=== PATIENT | female | born 1965 | race Caucasian/White ===

== ENCOUNTER 2018-08-16 06:00 | Day surgery (SDC) | payer OTHER, BC ==
[~2018-08-16 06:00] MED LIST: Lactated Ringers 1,000 ML IV SCH; Lidocaine 1%/Sod Bicarbonate in NS 8.4% 1 ML Syringe IDERM PRN; Sodium Chloride 0.9% 10 ML Syringe FLUSH PRN
[2018-08-16] MEDS ORDERED: Bupivacaine 0.25% 30 ML SDV ONE (07:01)
[2018-08-16] MEDS ORDERED: Lidocaine 1% 30 ML SDV ONE (07:01)
[2018-08-16] MEDS ORDERED: ceFAZolin 1 GM Vial ONE (07:09)
--- NOTE | 2018-08-20 07:43 | PCM.OPNOTE ---
- General Post-Op/Procedure Note Date of Surgery/Procedure: 08/16/18 Operative Procedure(s): right thumb and ring finger a1 jamil release Pre Op Diagnosis: right thumb and ring finger stenosing tenosynovitis Post-Op Diagnosis: Same Anesthesia Technique: Local Primary Surgeon: Donnell Maria Spaghetti Machine Operator: Rimma Mcneil in mLs: 5 Complications: None Condition: Good
--- NOTE | 2018-08-20 08:21 | OR ---
DATE OF OPERATION: 08/16/2018 SURGEON: Donnell Maria MD OPERATION PERFORMED: Right thumb and ring finger A1 jamil releases. PREOPERATIVE DIAGNOSIS: Right thumb and ring finger stenosing tenosynovitis. POSTOPERATIVE DIAGNOSIS: Right thumb and ring finger stenosing tenosynovitis. ANESTHESIA: Local only. ANESTHESIOLOGIST: None. OFFSET PRESSMAN: Rimma Mcneil PA-C. ESTIMATED BLOOD LOSS: Less than 5 mL. COMPLICATIONS: None. CONDITION: Stable. DESCRIPTION OF PROCEDURE: The patient was identified in the preoperative holding area. Proper site was marked and identified by the surgeon. The patient was taken back to the operating theater where the right upper extremity was then sterilely prepped and draped in usual sterile fashion. OR time-out was performed. The patient did not receive antibiotics and is not indicative for soft tissue hand procedure. At this time, 1% lidocaine without epinephrine and 0.25% Marcaine without epinephrine were used to anesthetize over the A1 jamil region of the thumb and ring finger. Once this had set up, incision was made over the thumb A1 jamil region. Blunt dissection was taken down to the thumb. [place] blade was then used to resect the A1 jamil both proximally and distally to make sure we are stopping short of the A2 jamil. At this time, the tendon was found to have no adhesions. Attention was turned to the ring finger. Again, transverse incision was made. Neurovascular bundles were retracted with Ragnell retractors. Again, the [place] blade was then used to resect the A1 jamil. It was found to be adequately released both proximally and distally. The tendon again showed no signs of adhesions. Adequate saline was then irrigated through the wounds. 4-0 nylon suture was used for closure of the skin. The patient had a sterile soft dressing applied and was sent to PACU in stable condition. MMODAL /[id number]
== END 2018-08-16 08:35 | disposition home or self-care (01) ==
LOC: JD.SDS 06:00
PROVIDERS: ATTEND Orthopaedic Surgery
DX: M65.841 Other synovitis and tenosynovitis, right hand (principal); M65.311 Trigger thumb, right thumb; M65.341 Trigger finger, right ring finger; I10 Essential (primary) hypertension; E11.9 Type 2 diabetes mellitus without complications; E78.00 Pure hypercholesterolemia, unspecified; F32.9 Major depressive disorder, single episode, unspecified; F41.9 Anxiety disorder, unspecified; M19.90 Unspecified osteoarthritis, unspecified site; Z79.899 Other long term (current) drug therapy; Z88.2 Allergy status to sulfonamides
CPT/HCPCS: 26055; 82962; 87641; J0690; J2001; J3490; J7120

== ENCOUNTER 2020-02-18 23:06 | Emergency (ER) | payer OTHER, BC ==
--- NOTE | 2020-02-18 23:31 | EDM.PDOC ---
ED HPI GENERAL MEDICAL PROBLEM - General Chief Complaint: Headache Stated Complaint: COVID POSITIVE SOB Time Seen by Provider: 02/18/20 23:30 - History of Present Illness INITIAL COMMENTS - FREE TEXT/NARRATIVE: 54-year-old female presents to the emergency room with a headache. Patient was diagnosed with COVID about a week ago and has a cough this is not getting any worse or shortness of breath does not get any worse she has had a headache now is developed some nausea and vomiting. She said diarrhea from the onset of her illness. But the headache is what brings her in tonight is keeping her from sleeping. Denies loss of taste or smell. Patient has no other complaints at this time Headache Pain Score (Numeric/FACES): 8 - Related Data Allergies Allergy/AdvReac Type Severity Reaction Status Date / Time Sulfa (Sulfonamide Allergy Hives Verified 02/18/20 23:30 Antibiotics) Home Meds: Home Meds Enalapril Maleate 20 mg PO BID 08/15/18 [History] FLUoxetine HCl [Prozac] 20 mg PO BID 08/15/18 [History] metFORMIN [Glucophage] 1,000 mg PO BID 08/15/18 [History] Past Medical History HEENT History: Reports: Sinusitis, Other (See Below) Other HEENT History: pharyngitis Cardiovascular History: Reports: High Cholesterol, Hypertension Respiratory History: Reports: Bronchitis, Recurrent Genitourinary History: Reports: Other (See Below) Other Genitourinary History: frequnecy, UTI, kidney stones, renal stent, lithotripsy [facility] History: Reports: None Musculoskeletal History: Reports: Arthritis, Gout, Other (See Below) Other Musculoskeletal History: thumb pain Neurological History: Reports: None Psychiatric History: Reports: Anxiety, Depression, Other (See Below) Other Psychiatric History: fatigue Endocrine/Metabolic History: Reports: Diabetes, Type II Hematologic History: Reports: None Immunologic History: Reports: None Oncologic (Cancer) History: Reports: None Dermatologic History: Reports: None - Past Surgical History Head Surgeries/Procedures: Reports: None HEENT Surgical History: Reports: Tonsillectomy Cardiovascular Surgical History: Reports: None Respiratory Surgical History: Reports: None GI Surgical History: Reports: Appendectomy Female Surgical History: Reports: Section Male Surgical History: Reports: None Endocrine Surgical History: Reports: None Neurological Surgical History: Reports: None Oncologic Surgical History: Reports: None Dermatological Surgical History: Reports: None Social & Family History - Caffeine Use Caffeine Use: Reports: Soda ED ROS GENERAL - Review of Systems Review Of Systems: See Below Constitutional: Reports: No Symptoms HEENT: Reports: No Symptoms Respiratory: Reports: Cough. Denies: Shortness of Breath Cardiovascular: Reports: No Symptoms, Chest Pain (This is vague and seems to be pretty mild associated with the ribs at the lower portion of her chest aggravated by coughing) Endocrine: Reports: No Symptoms GI/Abdominal: Reports: Abdominal Pain (Minimal discomfort most of her discomfort is along her lower ribs worse with coughing), Nausea, Vomiting : Reports: No Symptoms Musculoskeletal: Reports: No Symptoms Skin: Reports: No Symptoms Neurological: Reports: Headache. Denies: Dizziness, Numbness, Seizure, Syncope ED EXAM, GENERAL - Physical Exam Exam: See Below Exam Limited By: No Limitations General Appearance: Alert, No Apparent Distress, Obese Eye Exam: Bilateral Eye: EOMI, Normal Inspection, PERRL Ears: Normal External Exam, Normal Canal, Hearing Grossly Normal, Normal TMs Nose: Normal Inspection, Normal Mucosa, No Blood Throat/Mouth: Normal Inspection, Normal Lips, Normal Teeth, Normal Gums, Normal Oropharynx, Normal Voice, No Airway Compromise Head: Atraumatic, Normocephalic Neck: Normal Inspection, Supple, Non-Tender, Full Range of Motion. No: Lymphadenopathy (L), Lymphadenopathy (R) Respiratory/Chest: No Respiratory Distress, Lungs Clear, Normal Breath Sounds Cardiovascular: Regular Rate, Rhythm, No Edema, No Murmur GI/Abdominal: Normal Bowel Sounds, Soft, Other (No specific tenderness what she has is along the lower ribs) Back Exam: Normal Inspection. No: CVA Tenderness (L), CVA Tenderness (R) Extremities: Normal Inspection, No Pedal Edema Neurological: Alert, Oriented, CN II-XII Intact, Normal Cognition, No Motor/Sensory Deficits Lymphatic: No Adenopathy Course - Vital Signs Last Recorded V/S: Last Vital Signs Temp 36.1 C 02/18/20 23:27 Pulse 116 H 02/18/20 23:27 Resp 20 02/18/20 23:27 BP 146/90 H 02/18/20 23:27 Pulse Ox 94 L 02/18/20 23:27 - Orders/Labs/Meds Meds: Medications Discontinued Medications Generic Name Dose Route Start Last Admin Trade Name Dominik PRN Reason Stop Dose Admin Diphenhydramine HCl 50 mg 02/18/20 23:56 02/19/20 00:37 Benadryl IVPUSH 02/18/20 23:57 50 mg ONETIME ONE Administration Lactated Ringer's 1,000 mls @ 999 mls/hr 02/18/20 23:56 02/19/20 00:31 Ringers, Lactated IV 02/19/20 00:56 999 mls/hr .BOLUS ONE Administration Ketorolac Tromethamine 15 mg 02/18/20 23:56 02/19/20 00:33 Toradol IVPUSH 02/18/20 23:57 15 mg ONETIME ONE Administration Ondansetron HCl 4 mg 02/18/20 23:58 02/19/20 00:31 Zofran IVPUSH 02/18/20 23:59 4 mg ONETIME ONE Administration - Re-Assessments/Exams Free Text/Narrative Re-Assessment/Exam: 02/19/20 00:04 Discussed laboratory evaluation and head CT the patient would like to hold off on these. A liter of LR Zofran Benadryl and Toradol 02/19/20 02:05 The patient is doing much better at this time headache is almost completely gone. She like to go home and get some rest. Departure - Departure Time of Disposition: 02:06 Disposition: Home, Self-Care 01 Clinical Impression: COVID-19, Cephalgia - Discharge Information Referrals: Herlinda Porter PA-C [Primary Care Provider] - Forms: ED Department Discharge Additional Instructions: Return to the emergency room with any questions problems or worsening symptoms. Go straight home and get some sleep. Tylenol as needed for aches pains and headaches. Sepsis Event Note (ED) - Evaluation Sepsis Screening Result: No Definite Risk - Focused Exam Vital Signs: Vital Signs Temp Pulse Resp BP Pulse Ox 02/18/20 23:27 36.1 C 116 H 20 146/90 H 94 L
[2020-02-18] MEDS ORDERED: Ketorolac 15 MG/ML SDV IVPUSH ONE (23:56)
[2020-02-18] MEDS ORDERED: diphenhydrAMINE 50 MG/ML SDV IVPUSH ONE (23:56)
[2020-02-18] MEDS ORDERED: Lactated Ringers 1,000 ML IV ONE (23:56)
[2020-02-18] MEDS ORDERED: Ondansetron 4 MG/2 ML SDV IVPUSH ONE (23:58)
== END 2020-02-19 02:20 | disposition home or self-care (01) ==
LOC: JD.ED 23:06
DX: U07.1 COVID-19 (principal); I10 Essential (primary) hypertension; F41.9 Anxiety disorder, unspecified; F32.9 Major depressive disorder, single episode, unspecified; E11.9 Type 2 diabetes mellitus without complications; Z88.2 Allergy status to sulfonamides; Z79.84 Long term (current) use of oral hypoglycemic drugs; Z79.899 Other long term (current) drug therapy
CPT/HCPCS: 96361; 96374; 96375; 99283; J1200; J1885; J2405; J7120